=== PATIENT | female | born 1990 | race Caucasian/White ===

== ENCOUNTER 2020-04-23 03:49 | Emergency (ER) | payer BC, MEDICAID ==
[~2020-04-23] VITALS: Ht 160 cm; Wt 60.0 kg
[2020-04-23 06:22] LABS: CLARITY URINE CLEAR (CLEAR); COLOR URINE YELLOW (YELLOW); KETONES URINE NEGATIVE (NEGATIVE); LEUKOCYTE ESTERASE URINE NEGATIVE (NEGATIVE); NITRITE URINE NEGATIVE (NEGATIVE); OCCULT BLOOD URINE NEGATIVE (NEGATIVE); PROTEIN URINE NEGATIVE (NEGATIVE); SPECIFIC GRAVITY URINE 1.028 (1.005-1.030)
[2020-04-23] MEDS ORDERED: ACETAMINOPHEN 325MG TABLET PO STA (06:27)
[2020-04-23] MEDS ORDERED: KETOROLAC 60MG/2ML VIAL IM STA (06:27)
[2020-04-23 09:36] VITALS: BP 115/59
== END 2020-04-23 09:51 | disposition home or self-care (01) ==
LOC: ER 03:49
DX: M54.5 Low back pain (principal); R30.0 Dysuria; R05 Cough; N10 Acute pyelonephritis
CPT/HCPCS: 71045; 76770; 81003; 81025; 96372; 99285; J1885

== ENCOUNTER 2020-06-06 13:37 | Emergency (ER) | payer BC, MEDICAID ==
[~2020-06-06] VITALS: Ht 162.6 cm; Wt 63.0 kg
[2020-06-06 15:10] LABS: BASOPHILS % 1.4 % (0.0-2.0); EOSINOPHILS % 1.1 % (0.0-5.0); HEMATOCRIT. 39.4 % (36.0-48.0); HEMOGLOBIN. 13.2 g/dL (12.0-16.0); LYMPHOCYTES % 50.7 % (20.0-50.0); MEAN CORPUSCULAR HEMOGLOBIN 28.9 pg (28.0-32.0); MEAN CORPUSCULAR VOLUME 86.7 fL (81.0-99.0); MEAN PLATELET VOLUME 9.6 fl (7.4-10.4); MONOCYTES % 6.1 % (2.0-8.0); NEUTROPHILS % 40.7 % (40.0-76.0); PLATELET 238 x1000/uL (130-400); RED BLOOD CELL COUNT 4.54 mill/uL (4.2-5.4); RED CELL DISTRIBUTION WIDTH 15.1 % (11.6-14.6)
[2020-06-06 15:11] LABS: CHLORIDE 106 mEq/L (98-107)
[2020-06-06 15:15] LABS: PROTHROMBIN TIME 10.3 sec (9.6-11.0)
[2020-06-06 15:22] LABS: HCG SCREEN NEGATIVE
[2020-06-06 15:48] LABS: CLARITY URINE CLEAR (CLEAR); COLOR URINE YELLOW (YELLOW); KETONES URINE TRACE (NEGATIVE); LEUKOCYTE ESTERASE URINE NEGATIVE (NEGATIVE); NITRITE URINE NEGATIVE (NEGATIVE); OCCULT BLOOD URINE NEGATIVE (NEGATIVE); PROTEIN URINE NEGATIVE (NEGATIVE); SPECIFIC GRAVITY URINE 1.027 (1.005-1.030)
[2020-06-06 16:24] VITALS: BP 106/80
== END 2020-06-06 16:30 | disposition home or self-care (01) ==
LOC: ER 13:37
DX: R07.89 Other chest pain (principal); R05 Cough
CPT/HCPCS: 36415; 71045; 80053; 81003; 81025; 84484; 84703; 85025; 93005; 99285